=== PATIENT | female | born 1955 | race Caucasian/White ===

== ENCOUNTER 2017-01-04 02:17 | Emergency (ER) | payer BC, OTHER ==
[~2017-01-04] VITALS: Ht 172.7 cm; Wt 76.0 kg
[2017-01-04 03:05] LABS: Basophils # (auto) 0 uL; Basophils % (auto) 0.4 % (0.0-2.0); Eosinophils # (auto) 0.2 uL; Hematocrit 39.3 % (36.0-46.0); Hemoglobin 12.9 g/dL (12.2-16.2); Lymphocytes # (auto) 3.1 uL; Lymphocytes % (auto) 36.3 % (10.0-50.0); Mean Corpuscular Hemoglobin 28.9 pg (28.0-32.0); Mean Corpuscular Hgb Conc. 32.8 g/dL (32.0-36.0); Mean Platelet Volume 8.6 fL (7.4-10.4); Monocytes # (auto) 0.5 uL; Monocytes % (auto) 5.6 % (0.0-12.0); Neutrophils # (auto) 4.8 uL; Neutrophils % (auto) 55.7 % (37.0-80.0); Platelet Count (auto) 317 10^3/uL (140-450); Red Cell Distribution Width 14.4 % (11.6-16.0); White Blood Cell 8.7 10^3/uL (4.4-10.8)
[2017-01-04 03:19] LABS: INR 0.97 (0.9-1.15); Partial Thromboplastin Time 35.1 sec (22.64-33.71); Prothrombin Time 10.6 sec (9.37-12.3)
[2017-01-04 03:33] LABS: Albumin 3.3 g/dL (3.4-5.0); BUN/Creatinine Ratio 19.4; Calcium 8.2 mg/dL (8.5-10.1); Potassium 3.9 mmol/L (3.5-5.1)
[2017-01-04 03:44] LABS: Bilirubin, Total 0.3 mg/dL (0.2-1.0); Total Protein 7.2 g/dL (6.4-8.2)
[2017-01-04] MEDS: COCAINE HCL 4% TOP SOL 4ML TOP ONE ×2 (04:06→04:07)
[2017-01-04] MEDS: HYDROcodone-ACET 7.5/325MG TAB PO ONE (04:54)
[2017-01-04] MEDS: Acetam/CODEINE 120mg/12mg per 5mL UD PO ONE (05:00)
[2017-01-04 05:30] VITALS: BP 125/82
== END 2017-01-04 05:54 | disposition home or self-care (01) ==
LOC: ER 02:17 → EDBD 02:17 → ER 05:53
DX: R04.0 Epistaxis (principal)
CPT/HCPCS: 30901; 36415; 80053; 85025; 85610; 85730; 93005; 94761

== ENCOUNTER 2021-05-24 14:39 | Inpatient (IN) | payer MEDICARE, BC ==
[~2021-05-24] VITALS: Ht 165.1 cm; Wt 106.7 kg
[2021-05-24] MEDS ORDERED: ASCORBIC ACID 500 MG TAB PO ONE (15:00)
[2021-05-24] MEDS ORDERED: AZITHROMYCIN 500MG/ 250ML 250 ML IV ONE (15:00)
[2021-05-24] MEDS ORDERED: cefTRIAXone 1GM/50ML D5W 50 ML IV ONE (15:00)
[2021-05-24] MEDS ORDERED: ZINC SULFATE 220mg CAP or TAB PO ONE (15:00)
[2021-05-24] MEDS ORDERED: DexAMETHasone SOD PHOS 10MG/1ML VIAL INJ IV ONE (15:00)
[2021-05-24 17:59] LABS: Basophils # (auto) 0 10 ^3/uL (0-0.2); Basophils % (auto) 0.4 % (0.0-2.0); Eosinophils # (auto) 0 10 ^3/uL (0-0.8); Eosinophils % (auto) 0.1 % (0.0-7.0); Hematocrit 43.9 % (36.0-46.0); Hemoglobin 14.9 g/dL (12.2-16.2); Lymphocytes # (auto) 1.3 10 ^3/uL (0.4-5.4); Lymphocytes % (auto) 25.7 % (10.0-50.0); Mean Corpuscular Hgb Conc. 33.9 g/dL (32.0-36.0); Mean Corpuscular Volume 88.4 fL (80.0-100.0); Monocytes # (auto) 0.3 10 ^3/uL (0-1.3); Monocytes % (auto) 5.1 % (0.0-12.0); Neutrophils # (auto) 3.6 10 ^3/uL (1.6-8.6); Neutrophils % (auto) 68.7 % (37.0-80.0); Red Blood Cells 4.97 10^6/uL (4.0-5.20); Red Cell Distribution Width 14.2 % (11.8-14.3); White Blood Cell 5.2 10^3/uL (4.4-10.8)
[2021-05-24 18:23] LABS: Albumin 3.2 g/dL (3.4-5.0); Calcium 8.4 mg/dL (8.5-10.1); Potassium 3.2 mmol/L (3.5-5.1)
[2021-05-24 18:27] LABS: BUN/Creatinine Ratio 11.1; Bilirubin, Total 0.3 mg/dL (0.2-1.0); Total Protein 7.6 g/dL (6.4-8.2)
[2021-05-24] MEDS ORDERED: NITROGLYCERIN 0.4 MG SL TAB SL PRN (18:45)
[2021-05-24] MEDS ORDERED: REMDESIVIR PER PHARMACY 0 ML IV SCH (18:45)
[2021-05-24] MEDS ORDERED: DEXTROSE (50%) 50ML SYRG IV PRN (18:45)
[2021-05-24] MEDS ORDERED: MORPHINE SULFATE INJECTION 2 MG/ML SYRG IV PRN (18:45)
[2021-05-24] MEDS ORDERED: IOHEXOL 350 MG/ML 100ML IJ ONE (19:20)
[2021-05-24] MEDS ORDERED: POTASSIUM EFFERVESENT TAB 25 MEQ PO ONE (19:30)
[2021-05-24 19:51] LABS: Partial Thromboplastin Time 44.5 sec (23.6-33.0)
[2021-05-24] MEDS ORDERED: REMDESIVIR 200 MG in NS 210ml LOADING DOSE ADULT IV ONE (21:00)
[2021-05-24] MEDS: ACCU-CHEK COMFORT CURVE STRIP VI SCH (21:47)
[2021-05-24] MEDS: InsuLIN REG 1unit/0.01ml Soln (100units/ml) SC SCH (21:54)
[2021-05-24] MEDS: ENOXAPARIN SOD 40 MG/0.4 ML SYRINGE SC SCH (21:54)
[2021-05-24] MEDS: BUDESONIDE (INHALATION) 180 MCG IH IN SCH (22:00)
[2021-05-24 23:48] VITALS: BP 128/70
[2021-05-25] MEDS ORDERED: CHOL20007 PO (02:02)
[2021-05-25] MEDS ORDERED: METO25TA5 PO (02:10)
[2021-05-25] MEDS ORDERED: PITA2TAB PO (02:10)
[2021-05-25] MEDS ORDERED: IBAN1TAB3 PO (02:10)
[2021-05-25] MEDS ORDERED: ASPI-498 PO (02:10)
[2021-05-25] MEDS ORDERED: LEV100T PO (02:10)
[2021-05-25] MEDS ORDERED: DULO60CA PO (02:10)
[2021-05-25] MEDS ORDERED: POM (02:17)
[2021-05-25] MEDS ORDERED: EXEN2INJ SC (02:17)
[2021-05-25 05:07] VITALS: BP 141/74
[2021-05-25] MEDS: ALBUTEROL SULF HFA 90MCG INH 200DOSE IN PRN ×2 (06:14→20:27)
[2021-05-25] MEDS: BUDESONIDE (INHALATION) 180 MCG IH IN SCH ×2 (06:14→20:26)
[2021-05-25] MEDS: InsuLIN REG 1unit/0.01ml Soln (100units/ml) SC SCH ×4 (06:33→22:16)
[2021-05-25] MEDS: ACCU-CHEK COMFORT CURVE STRIP VI SCH ×4 (06:35→22:09)
[2021-05-25 07:02] LABS: Basophils # (auto) 0 10 ^3/uL (0-0.2); Basophils % (auto) 0.2 % (0.0-2.0); Eosinophils # (auto) 0 10 ^3/uL (0-0.8); Hematocrit 41.7 % (36.0-46.0); Lymphocytes # (auto) 0.7 10 ^3/uL (0.4-5.4); Lymphocytes % (auto) 20.1 % (10.0-50.0); Mean Corpuscular Hgb Conc. 33.6 g/dL (32.0-36.0); Mean Corpuscular Volume 89.3 fL (80.0-100.0); Monocytes # (auto) 0.3 10 ^3/uL (0-1.3); Monocytes % (auto) 7.3 % (0.0-12.0); Neutrophils # (auto) 2.5 10 ^3/uL (1.6-8.6); Neutrophils % (auto) 72.4 % (37.0-80.0); Red Blood Cells 4.67 10^6/uL (4.0-5.20); Red Cell Distribution Width 14.2 % (11.8-14.3); White Blood Cell 3.5 10^3/uL (4.4-10.8)
[2021-05-25 07:16] LABS: Potassium 3.7 mmol/L (3.5-5.1)
[2021-05-25 07:22] LABS: Albumin 2.7 g/dL (3.4-5.0); Bilirubin, Total 0.3 mg/dL (0.2-1.0); Calcium 8.2 mg/dL (8.5-10.1); Total Protein 6.8 g/dL (6.4-8.2)
[2021-05-25] MEDS: ENOXAPARIN SOD 40 MG/0.4 ML SYRINGE SC SCH ×2 (08:35→22:10)
[2021-05-25] MEDS: ZINC SULFATE 220mg CAP or TAB PO SCH (08:35)
[2021-05-25] MEDS: cefTRIAXone 1GM/50ML D5W 50 ML IV SCH (08:35)
[2021-05-25] MEDS: DexAMETHasone SOD PHOS 10MG/1ML VIAL INJ IV SCH (08:35)
[2021-05-25] MEDS: CHOLECALCIFEROL (VITD3) 2,000 UNIT CAP/TAB PO SCH (08:35)
[2021-05-25 09:00] VITALS: BP 128/87
[2021-05-25] MEDS: AZITHROMYCIN 500MG/ 250ML 250 ML IV SCH (10:23)
[2021-05-25 13:00] VITALS: BP 123/74
[2021-05-25] MEDS: IVERMECTIN 3 MG TAB PO SCH (13:15)
[2021-05-25] MEDS ORDERED: LOPERAMIDE HCL 2 MG CAP PO PRN (13:30)
[2021-05-25] MEDS ORDERED: LOPERAMIDE HCL 2 MG CAP PO ONE (13:30)
[2021-05-25] MEDS ORDERED: DULoxetine HCL 30 MG CAP PO ONE (15:00)
[2021-05-25] MEDS ORDERED: METOPROLOL SUCCINATE XL 50 MG TAB PO ONE (15:00)
[2021-05-25] MEDS ORDERED: REMDESIVIR 100mg 100 MG in SODIUM CHL 0.9% 230 ML IV SCH (15:00)
[2021-05-25 17:02] VITALS: BP 140/86
[2021-05-25] MEDS ORDERED: ONDANSETRON HCL 4 MG/2 ML VIAL IV PRN (18:15)
[2021-05-25 21:42] VITALS: BP 105/58
[2021-05-26 04:38] VITALS: BP 134/75
[2021-05-26] MEDS: LEVOTHYROXINE SODIUM 100 MCG TAB PO SCH (06:07)
[2021-05-26] MEDS: ACCU-CHEK COMFORT CURVE STRIP VI SCH ×4 (06:08→21:32)
[2021-05-26] MEDS: InsuLIN REG 1unit/0.01ml Soln (100units/ml) SC SCH ×4 (06:08→21:34)
[2021-05-26 06:21] LABS: Potassium 3.5 mmol/L (3.5-5.1)
[2021-05-26 06:27] LABS: Albumin 2.5 g/dL (3.4-5.0); BUN/Creatinine Ratio 23.2; Calcium 8.5 mg/dL (8.5-10.1)
[2021-05-26 06:30] LABS: Bilirubin, Total 0.3 mg/dL (0.2-1.0); Total Protein 6.4 g/dL (6.4-8.2)
[2021-05-26 08:20] VITALS: BP 106/67
[2021-05-26] MEDS: ALBUTEROL SULF HFA 90MCG INH 200DOSE IN PRN ×2 (09:06→22:29)
[2021-05-26] MEDS: BUDESONIDE (INHALATION) 180 MCG IH IN SCH ×2 (09:06→22:29)
[2021-05-26] MEDS: DexAMETHasone SOD PHOS 10MG/1ML VIAL INJ IV SCH (09:21)
[2021-05-26] MEDS: ZINC SULFATE 220mg CAP or TAB PO SCH (09:21)
[2021-05-26] MEDS: cefTRIAXone 1GM/50ML D5W 50 ML IV SCH (09:21)
[2021-05-26] MEDS: DULoxetine HCL 30 MG CAP PO SCH (09:21)
[2021-05-26] MEDS: FUROSEMIDE 40 MG TAB PO SCH (09:22)
[2021-05-26] MEDS: POTASSIUM CHL 10 Meq TABLET PO SCH (09:22)
[2021-05-26] MEDS: IVERMECTIN 3 MG TAB PO SCH (09:22)
[2021-05-26] MEDS: CHOLECALCIFEROL (VITD3) 2,000 UNIT CAP/TAB PO SCH (09:23)
[2021-05-26] MEDS: ENOXAPARIN SOD 40 MG/0.4 ML SYRINGE SC SCH ×2 (09:23→21:32)
[2021-05-26] MEDS: METOPROLOL SUCCINATE XL 50 MG TAB PO SCH (09:23)
[2021-05-26] MEDS: AZITHROMYCIN 500MG/ 250ML 250 ML IV SCH (10:55)
[2021-05-26 11:40] VITALS: BP 148/82
[2021-05-26 15:45] VITALS: BP 125/90
[2021-05-26 16:19] VITALS: BP 101/67
[2021-05-26 22:00] VITALS: BP 111/56
[2021-05-27 05:16] VITALS: BP 106/69
[2021-05-27] MEDS: ACCU-CHEK COMFORT CURVE STRIP VI SCH ×4 (06:20→21:27)
[2021-05-27] MEDS: LEVOTHYROXINE SODIUM 100 MCG TAB PO SCH (06:20)
[2021-05-27] MEDS: InsuLIN REG 1unit/0.01ml Soln (100units/ml) SC SCH ×4 (06:20→21:36)
[2021-05-27] MEDS: BUDESONIDE (INHALATION) 180 MCG IH IN SCH ×2 (06:21→20:00)
[2021-05-27] MEDS: ALBUTEROL SULF HFA 90MCG INH 200DOSE IN PRN ×2 (06:21→20:00)
[2021-05-27 06:53] LABS: Potassium 3.5 mmol/L (3.5-5.1)
[2021-05-27 07:00] LABS: Albumin 2.4 g/dL (3.4-5.0); BUN/Creatinine Ratio 24.2; Bilirubin, Total 0.3 mg/dL (0.2-1.0); Calcium 8.1 mg/dL (8.5-10.1); Total Protein 6.5 g/dL (6.4-8.2)
[2021-05-27] MEDS: DexAMETHasone SOD PHOS 10MG/1ML VIAL INJ IV SCH (08:59)
[2021-05-27] MEDS: cefTRIAXone 1GM/50ML D5W 50 ML IV SCH (08:59)
[2021-05-27] MEDS: DULoxetine HCL 30 MG CAP PO SCH (09:00)
[2021-05-27] MEDS: POTASSIUM CHL 10 Meq TABLET PO SCH (09:00)
[2021-05-27] MEDS: AZITHROMYCIN 500MG/ 250ML 250 ML IV SCH (09:00)
[2021-05-27] MEDS: ZINC SULFATE 220mg CAP or TAB PO SCH (09:00)
[2021-05-27] MEDS: METOPROLOL SUCCINATE XL 50 MG TAB PO SCH (09:01)
[2021-05-27] MEDS: IVERMECTIN 3 MG TAB PO SCH (09:01)
[2021-05-27] MEDS: FUROSEMIDE 40 MG TAB PO SCH (09:01)
[2021-05-27] MEDS: ENOXAPARIN SOD 40 MG/0.4 ML SYRINGE SC SCH ×2 (09:02→21:27)
[2021-05-27] MEDS: CHOLECALCIFEROL (VITD3) 2,000 UNIT CAP/TAB PO SCH (09:02)
[2021-05-27 09:07] VITALS: BP 138/84
[2021-05-27 13:06] VITALS: BP 148/84
[2021-05-27 16:39] VITALS: BP 143/86
[2021-05-27 22:00] VITALS: BP 137/85
[2021-05-27 22:28] VITALS: BP 137/85
[2021-05-28 05:00] VITALS: BP 139/97
[2021-05-28] MEDS: LEVOTHYROXINE SODIUM 100 MCG TAB PO SCH (06:24)
[2021-05-28] MEDS: ACCU-CHEK COMFORT CURVE STRIP VI SCH ×2 (06:24→11:30)
[2021-05-28] MEDS: ALBUTEROL SULF HFA 90MCG INH 200DOSE IN PRN (06:25)
[2021-05-28] MEDS: BUDESONIDE (INHALATION) 180 MCG IH IN SCH (06:25)
[2021-05-28 06:31] LABS: Potassium 3.6 mmol/L (3.5-5.1)
[2021-05-28] MEDS: InsuLIN REG 1unit/0.01ml Soln (100units/ml) SC SCH ×2 (06:31→11:30)
[2021-05-28 06:51] LABS: Albumin 2.6 g/dL (3.4-5.0); Bilirubin, Total 0.3 mg/dL (0.2-1.0); Calcium 8.5 mg/dL (8.5-10.1)
[2021-05-28 09:01] VITALS: BP 149/81
[2021-05-28] MEDS: DexAMETHasone SOD PHOS 10MG/1ML VIAL INJ IV SCH (09:12)
[2021-05-28] MEDS: ZINC SULFATE 220mg CAP or TAB PO SCH (09:12)
[2021-05-28] MEDS: cefTRIAXone 1GM/50ML D5W 50 ML IV SCH (09:12)
[2021-05-28] MEDS: DULoxetine HCL 30 MG CAP PO SCH (09:12)
[2021-05-28] MEDS: AZITHROMYCIN 500MG/ 250ML 250 ML IV SCH (09:12)
[2021-05-28] MEDS: FUROSEMIDE 40 MG TAB PO SCH (09:13)
[2021-05-28] MEDS: METOPROLOL SUCCINATE XL 50 MG TAB PO SCH (09:13)
[2021-05-28] MEDS: IVERMECTIN 3 MG TAB PO SCH (09:13)
[2021-05-28] MEDS: POTASSIUM CHL 10 Meq TABLET PO SCH (09:13)
[2021-05-28] MEDS: CHOLECALCIFEROL (VITD3) 2,000 UNIT CAP/TAB PO SCH (09:14)
[2021-05-28] MEDS: ENOXAPARIN SOD 40 MG/0.4 ML SYRINGE SC SCH (09:15)
[2021-05-28 12:43] VITALS: BP 152/81
[2021-05-28] MEDS ORDERED: DEX4T PO (13:46)
[2021-05-28] MEDS ORDERED: POTA-167 PO (13:46)
[2021-05-28] MEDS ORDERED: FURO40TA4 PO (13:46)
[2021-05-28] MEDS ORDERED: ALBUAER3 IN (13:46)
[2021-05-28 14:10] VITALS: BP 117/46
[2021-05-28 16:16] VITALS: BP 149/97
== END 2021-05-28 17:20 | disposition home or self-care (01) | DRG 137 ==
LOC: ER 14:39 → TELE 18:43 → TELE-EAST 23:23
PROVIDERS: ADMIT Nurse Practitioner Acute Care; ATTEND Internal Medicine
PROC: XW033E5 Introduction of Remdesivir Anti-infective into Peripheral Vein, Percutaneous Approach, New Technology Group 5 (ICD-10-PCS; principal; 2021-05-24)
PROC: 05HF33Z Insertion of Infusion Device into Left Cephalic Vein, Percutaneous Approach (ICD-10-PCS; 2021-05-25)
PROC: B54NZZA Ultrasonography of Left Upper Extremity Veins, Guidance (ICD-10-PCS; 2021-05-25)
DX: U07.1 COVID-19 (principal); J96.01 Acute respiratory failure with hypoxia; J12.82 Pneumonia due to coronavirus disease 2019; C50.919 Malignant neoplasm of unspecified site of unspecified female breast; E11.9 Type 2 diabetes mellitus without complications; E87.6 Hypokalemia; E88.09 Other disorders of plasma-protein metabolism, not elsewhere classified; Z53.29 Procedure and treatment not carried out because of patient's decision for other reasons; K52.9 Noninfective gastroenteritis and colitis, unspecified; M79.7 Fibromyalgia; I10 Essential (primary) hypertension; E66.01 Morbid (severe) obesity due to excess calories; E03.9 Hypothyroidism, unspecified; Z85.3 Personal history of malignant neoplasm of breast; Z95.2 Presence of prosthetic heart valve; Z68.38 Body mass index [BMI] 38.0-38.9, adult
CPT/HCPCS: 36415; 36600; 71045; 71275; 80053; 82728; 82805; 82962; 83036; 83735; 85025; 85379; 85610; 85730; 86141; 87426; 93005; 93970; 94640; 96365; 96366; 96367; 96368; 96375; 99291; G0378; J0696; J1100; J1815; J2405